=== PATIENT | female | born 2000 ===

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

== ENCOUNTER → 2022-06-16 | Outpatient (CLI) | payer OTHER ==
[2022-06-16 19:20] LABS: Candida species (DNA Probe) Positive (NEGATIVE); G. vaginalis (DNA Probe) Positive (NEGATIVE); T. vaginalis (DNA Probe) Negative (NEGATIVE)
== END | disposition home or self-care (01) ==
LOC: LAB SHORT 17:00
PROVIDERS: Nurse Practitioner Family
DX: N76.0 Acute vaginitis (principal); R30.0 Dysuria; R36.9 Urethral discharge, unspecified
CPT/HCPCS: 87480; 87510; 87660